=== PATIENT | female | born 1965 | race African-American/Black ===

== ENCOUNTER 2020-12-07 10:41 | Inpatient (IN) | payer OTHER ==
[2020-12-07 11:26] VITALS: BMI 20.6
[2020-12-07] MEDS ORDERED: BISMUTH SUBSALICYLATE 524 MG/30 ML PO PRN (12:37)
[2020-12-07] MEDS ORDERED: ACETAMINOPHEN 325 MG TABLET (FP) PO PRN ×2 (12:37)
[2020-12-07] MEDS ORDERED: ONDANSETRON *ODT* 4 MG TABLET SL PRN (12:37)
[2020-12-07] MEDS ORDERED: MAGNESIUM HYDROX 2400MG/30ML ORAL SUSPENSION 30 ML CUP PO PRN (12:37)
[2020-12-07] MEDS ORDERED: MAG HYDROX/AL HYDROX/SIMETH 30 ML UNIT-DOSE CUP PO PRN (12:37)
[2020-12-07] MEDS ORDERED: NICOTINE POLACRILEX 2 MG GUM BUC PRN (12:37)
[2020-12-07] MEDS ORDERED: IBUPROFEN 400 MG TABLET (FP) PO PRN (12:37)
[2020-12-07] MEDS ORDERED: MENTHOL/PHENOL 1 EACH UD MM PRN (12:37)
[2020-12-07] MEDS ORDERED: MAGNESIUM CITRATE 300 ML BOTTLE PO PRN (12:37)
[2020-12-07] MEDS: diazePAM 5 MG TABLET PO PRN (14:40)
[2020-12-07] MEDS: hydrOXYzine PAMOATE 25 MG CAPSULE (FP) PO SCH ×3 (14:40→22:30)
[2020-12-07] MEDS: CEPHALEXIN MONOHYDRATE 500 MG CAPSULE (UD) PO SCH ×2 (18:08→23:48)
[2020-12-07] MEDS: diazePAM 5 MG TABLET PO SCH ×2 (18:09→22:33)
[2020-12-07] MEDS: SULFAMETHOXAZOLE/TRIMETHOPRIM 800MG/160MG D.S. TABLET PO SCH (22:30)
[2020-12-07] MEDS: MELATONIN 5 MG TABLETS PO SCH (22:31)
[2020-12-07] MEDS: THIAMINE HCL 100 MG TABLET (FP) PO SCH (22:31)
[2020-12-08] MEDS: CEPHALEXIN MONOHYDRATE 500 MG CAPSULE (UD) PO SCH ×4 (05:58→23:59)
[2020-12-08] MEDS: hydrOXYzine PAMOATE 25 MG CAPSULE (FP) PO SCH ×2 (05:58→10:14)
[2020-12-08] MEDS: diazePAM 5 MG TABLET PO SCH ×4 (05:58→22:14)
[2020-12-08] MEDS: PRENATAL VITAMINS W/ FOLIC ACID TABLET (FP) PO SCH (10:14)
[2020-12-08] MEDS: SULFAMETHOXAZOLE/TRIMETHOPRIM 800MG/160MG D.S. TABLET PO SCH ×2 (10:14→22:15)
[2020-12-08 10:38] LABS: HEMATOCRIT 42.9 % (32.4-45.2); HEMOGLOBIN 14.5 GM/dL (10.7-15.3); MCHC 33.7 g/dl (32.0-36.0); MEAN CELL VOLUME 97.8 fl (80-96); MEAN PLT VOLUME 8.1 fl (7.5-11.1); PLATELET COUNT 320 10^3/uL (134-434); RBC 4.39 M/mm3 (3.60-5.2); RDW 13.5 % (11.6-15.6); WHITE BLOOD COUNT 8.2 K/mm3 (4.0-10.0)
[2020-12-08 11:14] LABS: CALCIUM 8.8 mg/dL (8.5-10.1)
[2020-12-08 11:19] LABS: ALBUMIN 3.5 g/dl (3.4-5.0)
[2020-12-08 11:23] LABS: BILIRUBIN,TOTAL 0.3 mg/dL (0.2-1); TOT PROT 7.3 g/dl (6.4-8.2)
[2020-12-08 11:39] LABS: HIV INTERPRETATION NEGATIVE (NEGATIVE)
[2020-12-08] MEDS ORDERED: hydrOXYzine PAMOATE 25 MG CAPSULE (FP) PO PRN (13:05)
[2020-12-08] MEDS ORDERED: OXcarbazepine 300 MG/5 ML UNIT DOSE CUPS PO SCH (22:00)
[2020-12-08] MEDS: THIAMINE HCL 100 MG TABLET (FP) PO SCH (22:15)
[2020-12-08] MEDS: QUEtiapine FUMARATE 100 MG TABLET (FP) PO SCH (22:15)
[2020-12-08] MEDS: OXcarbazepine 300 MG TABLET (UD) PO SCH (22:15)
[2020-12-08] MEDS: MELATONIN 5 MG TABLETS PO SCH (22:15)
[2020-12-09] MEDS: CEPHALEXIN MONOHYDRATE 500 MG CAPSULE (UD) PO SCH ×4 (05:56→22:59)
[2020-12-09] MEDS: diazePAM 5 MG TABLET PO SCH ×3 (05:56→22:32)
[2020-12-09] MEDS: LEVOTHYROXINE NA 100 MCG TABLET (FP) PO SCH (06:03)
[2020-12-09] MEDS: PRENATAL VITAMINS W/ FOLIC ACID TABLET (FP) PO SCH (10:32)
[2020-12-09] MEDS: SULFAMETHOXAZOLE/TRIMETHOPRIM 800MG/160MG D.S. TABLET PO SCH ×2 (10:32→21:13)
[2020-12-09] MEDS: amLODIPine BESYLATE 5 MG TABLET (FP) PO SCH (10:33)
[2020-12-09] MEDS: OXcarbazepine 300 MG TABLET (UD) PO SCH ×2 (10:33→21:13)
[2020-12-09] MEDS: diazePAM 5 MG TABLET PO PRN (10:34)
[2020-12-09] MEDS: METHOCARBAMOL 500 MG TABLET PO PRN (14:06)
[2020-12-09] MEDS: QUEtiapine FUMARATE 100 MG TABLET (FP) PO SCH (21:13)
[2020-12-09] MEDS: MELATONIN 5 MG TABLETS PO SCH (21:13)
[2020-12-09] MEDS: THIAMINE HCL 100 MG TABLET (FP) PO SCH (21:13)
[2020-12-10] MEDS: CEPHALEXIN MONOHYDRATE 500 MG CAPSULE (UD) PO SCH ×4 (06:00→23:57)
[2020-12-10] MEDS: diazePAM 5 MG TABLET PO SCH ×2 (06:01→18:04)
[2020-12-10] MEDS: LEVOTHYROXINE NA 100 MCG TABLET (FP) PO SCH (06:42)
[2020-12-10] MEDS: OXcarbazepine 300 MG TABLET (UD) PO SCH ×2 (09:57→22:28)
[2020-12-10] MEDS: amLODIPine BESYLATE 5 MG TABLET (FP) PO SCH (09:57)
[2020-12-10] MEDS: SULFAMETHOXAZOLE/TRIMETHOPRIM 800MG/160MG D.S. TABLET PO SCH ×2 (09:57→22:28)
[2020-12-10] MEDS: PRENATAL VITAMINS W/ FOLIC ACID TABLET (FP) PO SCH (09:58)
[2020-12-10] MEDS: diazePAM 5 MG TABLET PO PRN (09:59)
[2020-12-10] MEDS ORDERED: BACITRACIN 0.9 GM PACKET ONE (16:22)
[2020-12-10] MEDS: THIAMINE HCL 100 MG TABLET (FP) PO SCH (22:28)
[2020-12-10] MEDS: QUEtiapine FUMARATE 100 MG TABLET (FP) PO SCH (22:28)
[2020-12-10] MEDS: MELATONIN 5 MG TABLETS PO SCH (22:28)
[2020-12-10] MEDS: METHOCARBAMOL 500 MG TABLET PO PRN (22:29)
[2020-12-11] MEDS ORDERED: diazePAM 5 MG TABLET PO ONE (06:00)
[2020-12-11] MEDS: LEVOTHYROXINE NA 100 MCG TABLET (FP) PO SCH (06:01)
[2020-12-11] MEDS: CEPHALEXIN MONOHYDRATE 500 MG CAPSULE (UD) PO SCH ×2 (06:01→11:21)
[2020-12-11] MEDS: PRENATAL VITAMINS W/ FOLIC ACID TABLET (FP) PO SCH (09:25)
[2020-12-11] MEDS: SULFAMETHOXAZOLE/TRIMETHOPRIM 800MG/160MG D.S. TABLET PO SCH (09:25)
[2020-12-11] MEDS: amLODIPine BESYLATE 5 MG TABLET (FP) PO SCH (09:25)
[2020-12-11] MEDS: OXcarbazepine 300 MG TABLET (UD) PO SCH (09:26)
[2020-12-11 09:40] VITALS: TEMP 96.9
[2020-12-11] MEDS ORDERED: BACITRACIN 0.9 GM PACKET TP SCH (10:00)
[2020-12-11 13:20] VITALS: BP 132/79; PULSE 90
[2020-12-11] MEDS ORDERED: CEPHALEXIN MONOHYDRATE 500 MG CAPSULE (UD) PO SCH (18:00)
[2020-12-11] MEDS ORDERED: SULFAMETHOXAZOLE/TRIMETHOPRIM 800MG/160MG D.S. TABLET PO SCH (22:00)
== END 2020-12-11 14:44 | disposition other institution (70) | DRG 774 ==
LOC: YASAS 10:41 → Y3N 13:20
PROVIDERS: ADMIT Allergy & Immunology; ATTEND Allergy & Immunology
PROC: HZ2ZZZZ Detoxification Services for Substance Abuse Treatment (ICD-10-PCS; principal; 2020-12-07)
DX: F10.230 Alcohol dependence with withdrawal, uncomplicated (principal); F14.20 Cocaine dependence, uncomplicated; F12.20 Cannabis dependence, uncomplicated; F17.210 Nicotine dependence, cigarettes, uncomplicated; F31.9 Bipolar disorder, unspecified; F19.24 Other psychoactive substance dependence with psychoactive substance-induced mood disorder; E89.0 Postprocedural hypothyroidism; I10 Essential (primary) hypertension; L02.211 Cutaneous abscess of abdominal wall; M06.9 Rheumatoid arthritis, unspecified; Z62.810 Personal history of physical and sexual abuse in childhood; Z91.410 Personal history of adult physical and sexual abuse; Z87.09 Personal history of other diseases of the respiratory system; Z98.890 Other specified postprocedural states
CPT/HCPCS: 36415; 80053; 84439; 84443; 84481; 85027; 86780; 87389; 93005; 93010; C9803; U0003; U0005